=== PATIENT | female | born 1995 | race American Indian/Alaskan Native ===

== ENCOUNTER 2021-09-12 02:28 | Emergency (ER) | payer SELFPAY ==
[2021-09-12 02:33] VITALS: BP 126/88
--- NOTE | 2021-09-12 06:14 | Emergency Department Report ---
HPI - General Chief Complaint: Eye Problems Time Seen by Provider: 09/12/21 06:09 - HPI HPI: 26-year-old -[place] female presents to the emergency department with complaint of a 1 week history of bilateral eye redness, irritation, and some clear drainage as well as purulent drainage. She denies any vision change. The patient's significant other had similar symptoms in one of his eyes but it resolved on its own. Patient wears glasses but has not worn contacts recently. She denies any headache, fever, facial rash or lesions. She has not taken anything for her symptoms prior to presentation. Patient also complains of swelling of the bilateral upper and lower eyelids. She says that there was some type of a "bubble" on her left eye but it resolved on its own. ED Past Medical Hx - Past Medical History Previous Medical History?: No - Surgical History Past Surgical History?: No - Medications Home Medications: Home Medications Medication Instructions Recorded Confirmed Last Taken Type Amoxicillin [Trimox CAP] 500 mg PO Q8H #15 capsule 09/12/21 Unknown Rx Neomy/Polymyx B/Hc Opth Susp 1 drop OU Q6H #1 bottle 09/12/21 Unknown Rx [Cortisporin (OPTH) Susp] ED Review of Systems ROS: Stated complaint: EYE IRRITATION Other details as noted in HPI Comment: All other systems reviewed and negative Constitutional: denies: chills, fever Eyes: eye pain (burning irritation), eye discharge. denies: vision change ENT: denies: ear pain, throat pain Respiratory: denies: shortness of breath Cardiovascular: denies: chest pain Skin: denies: rash, lesions Neurological: denies: headache, weakness Physical Exam - Physical Exam Vital Signs: Vital Signs 09/12/21 02:31 Temperature 98.0 F Pulse Rate 89 Respiratory 18 Rate Blood Pressure 126/88 O2 Sat by Pulse 99 Oximetry Physical Exam: GENERAL: The patient is well-developed well-nourished. HENT: Normocephalic. Atraumatic. Patient has moist mucous membranes. EYES: Extraocular motions are intact. Pupils equal reactive to light bilaterally. Injected conjunctiva bilaterally. There is some swelling to the bilateral upper and lower eyelids. NECK: Supple. Trachea is midline. SKIN: Skin is warm and dry. NEURO: The patient is awake, alert, and oriented. The patient is cooperative. Normal speech. MUSCULOSKELETAL: There is no tenderness or deformity. ED Course Vital Signs 09/12/21 02:31 Temperature 98.0 F Pulse Rate 89 Respiratory 18 Rate Blood Pressure 126/88 O2 Sat by Pulse 99 Oximetry ED Medical Decision Making - Medical Decision Making This patient presents with a 1 week history of bilateral eye redness, burning irritation, and both some clear and purulent drainage with some crusting and or matting. No vision change. No headache or fever. Overall this sounds consistent with a conjunctivitis. Conjunctivitis is also most likely the reason for the upper and lower bilateral eyelid swelling. The patient will be treated with both Cortisporin ophthalmic and some amoxicillin. She has been given outpatient referral for ophthalmology. Critical Care Time: No Critical care attestation.: If time is entered above; I have spent that time in minutes in the direct care of this critically ill patient, excluding procedure time. ED Disposition Clinical Impression: Bilateral conjunctivitis Qualifiers: Conjunctivitis type: unspecified Qualified Code(s): H10.9 - Unspecified conjunctivitis Disposition: HOME / SELF CARE / HOMELESS Is pt being admited?: No Condition: Stable Instructions: Bacterial Conjunctivitis, Adult, How to Use Eye Drops and Eye Ointments Additional Instructions: Take all antibiotics/medications as prescribed. I am giving you a referral for two different local marinator. Return to the emergency department with any worsening of your symptoms, new or concerning symptoms not addressed during this current emergency department visit, or with any acute distress. Prescriptions: Neomy/Polymyx B/Hc Opth Susp [Cortisporin (OPTH) Susp] 1 drop OU Q6H #1 bottle Amoxicillin [Trimox CAP] 500 mg PO Q8H #15 capsule Referrals: ANSELMO REDDY MD [Staff Physician] - 3-5 Days [facility] [Provider Group] - 3-5 Days Time of Disposition: 06:14
== END 2021-09-12 08:00 | disposition home or self-care (01) ==
LOC: ED 02:28
DX: H10.9 Unspecified conjunctivitis (principal)
CPT/HCPCS: 99281